=== PATIENT | female | born 1995 | race African-American/Black ===

== ENCOUNTER → 2017-01-08 | Outpatient (CLI) | payer MEDICAID ==
[~2017-01-08] MED LIST: BENA25CA2 PO; COLA100C5 PO; FERR325T3 PO; IBUP-1022 PO; IBUP-1114 PO; MOTR200T44 PO; OXYC1TAB23 PO; PERC5TAB12 PO; PREN1TAB11 PO; PRENTAB9 PO
[2017-01-08 18:52] LABS: ALT/SGPT 9 U/L (12-78); AST/SGOT 12 U/L (7-37); BILIRUBIN,TOTAL 0.6 MG/DL (0.2-1.0); CREATININE FOR GFR 0.51 MG/DL (0.55-1.02); GLOMERULAR FILTRATION RATE > 60.0 (>60); URIC ACID 2.6 MG/DL (2.6-6.0)
[2017-01-08 18:59] LABS: BASO % 0.1 % (0.0-1.0); EOS # 0.1 10^3/uL (0.0-0.50); EOS % 1.1 % (0.0-3.0); IMMATURE GRANULOCYTE % 0.8 % (0-0); LYMPH # 1.5 10^3/uL (1.5-6.5); LYMPH % 16.6 % (24.0-44.0); MEAN CORPUSCULAR HGB CONC 33.2 g/dl (32.0-36.5); MEAN CORPUSCULAR VOLUME 96.2 fl (80.0-96.0); MONO # 0.9 10^3/uL (0.0-0.8); MONO % 9.6 % (0.0-5.0); NEUTROPHILS # 6.4 10^3/uL (1.8-7.7); NEUTROPHILS % 71.8 % (36.0-66.0); PLATELET COUNT, AUTOMATED 244 10^3/uL (150-450); RED CELL DISTRIBUTION WIDTH 12.1 % (11.5-14.5)
[2017-01-09 08:22] LABS: WHITE BLOOD COUNT 8.9 10^3/uL (4.0-10.0)
[2017-01-10 10:48] LABS: HBsAg Prenatal NEGATIVE (NEGATIVE)
== END ==
LOC: M SMT 13:27
PROVIDERS: ATTEND Advanced Practice Midwife
DX: Z36.89 Encounter for other specified antenatal screening (principal); Z3A.26 26 weeks gestation of pregnancy

== ENCOUNTER → 2017-01-11 | Outpatient (CLI) | payer MEDICAID, OTHER ==
--- NOTE | 2017-01-11 21:11 | REP ---
COMPLETE OB ULTRASOUND ANATOMY SCREEN: 01/11/2017. Clinical history: Second trimester anatomy screen, 26 weeks. Findings: No prior studies available for this . There is a single intrauterine gestation in a transverse lie with head towards the maternal right side. Cervix is 3.4 cm long and closed. There is an anterior grade 1 placenta without previa or abruption. Visually the amniotic fluid volume is normal. biometry: BPD 6.6 cm = 26 weeks 4 daysHC 24.1 cm = 26 weeks 1 dayAC 21.8 cm = 26 weeks 2 daysFL 4.7 cm = 25 weeks 6 daysHL 4.5 cm = 26 weeks 6 days CER 3.1 cm = 26 weeks 6 days Average ultrasound age 26 weeks 3 days with EDC 04/16/2017. Estimated weight 893 grams or 1 pound 15 ounces is 35th percentile for this dating. All measurement ratios are normal. Anatomy screen shows heart rate 169 and regular. Cranial vault, lateral ventricles, choroid plexus, cavum septum pellucidum, cerebellum and cisterna magna all unremarkable. Nose and lips view seen but the facial profile not adequate. Four-chamber heart and ventricular outflow tracts are not well seen due to transverse lie. Diaphragm, left-sided stomach bubble, cord insertion, three-vessel cord, kidneys and bladder intact with minimal pelviectasis in the kidneys, less than 4 ml and normal. Transverse and longitudinal views of the spine and the upper and lower extremities grossly intact. The umbilical cord appears to be at least draped over the neck. Impression:1. Single intrauterine gestation in transverse position with head towards the maternal right side and with a closed 3.4 cm long cervix. 2. Anterior grade 1 placenta without previa or abruption and visually normal amniotic fluid. 3. Heart rate 169 and regular. There are no visible anomalies but the facial profile not adequately seen and a four-chamber heart view with ventricular outflow tracts also suboptimal due to transverse lie. Remainder of the structures seen are unremarkable. 4. Average ultrasound age 26 weeks 3 days, EDC 04/16/2017. Estimated weight 35th percentile for this dating. Signed by Willie Osman MD 01/12/2017 08:23 A
== END ==
LOC: M RAD 18:31
PROVIDERS: ATTEND Advanced Practice Midwife
DX: Z36.2 Encounter for other antenatal screening follow-up (principal)

== ENCOUNTER → 2017-02-19 | Outpatient (REF) | payer MEDICAID | LOC: M LAB REF 17:02 | DX: Z34.83 Encounter for supervision of other normal pregnancy, third trimester (principal) ==

== ENCOUNTER 2017-03-05 07:36 | Emergency (ER) | payer MEDICAID, OTHER ==
[2017-03-05] MEDS: FLUCONAZOLE 50MG TABLET PO ×2 (10:15)
[2017-03-05] MEDS ORDERED: FLUCONAZOLE 100 MG TAB PO ×2 (10:30)
[2017-03-05 13:20] LABS: CHLAMYDIA DNA AMPLIFICATION NEGATIVE (NEGATIVE); GC DNA AMPLIFICATION NEGATIVE (NEGATIVE)
== END 2017-03-05 11:06 | disposition home or self-care (01) ==
LOC: M ED 07:36
DX: O23.90 Unspecified genitourinary tract infection in pregnancy, unspecified trimester (principal); B37.3 Candidiasis of vulva and vagina; O99.340 Other mental disorders complicating pregnancy, unspecified trimester; F33.9 Major depressive disorder, recurrent, unspecified; Z3A.00 Weeks of gestation of pregnancy not specified; Z88.0 Allergy status to penicillin; Z86.2 Personal history of diseases of the blood and blood-forming organs and certain disorders involving the immune mechanism; Z98.890 Other specified postprocedural states
CPT/HCPCS: 87210

== ENCOUNTER 2017-03-23 18:25 | Outpatient (CLI) | payer OTHER, MEDICAID | END 2017-03-23 20:02 | disposition home or self-care (01) | LOC: M LDO 18:25 | DX: O26.893 Other specified pregnancy related conditions, third trimester (principal); Z3A.36 36 weeks gestation of pregnancy; O09.33 Supervision of pregnancy with insufficient antenatal care, third trimester; Z87.59 Personal history of other complications of pregnancy, childbirth and the puerperium | CPT/HCPCS: 59025 ==

== ENCOUNTER 2017-03-31 22:18 | Inpatient (IN) | payer MEDICAID, OTHER ==
[2017-03-31] MEDS: LACTATED RINGER'S 1000 ML IV (23:01)
[2017-03-31] MEDS: CEFAZOLIN SOD 1 GM in APPROPRIATE DILUENT 1 EA IV (23:15)
[2017-03-31 23:21] LABS: HEMATOCRIT 28.9 % (36.0-47.0); HEMOGLOBIN 9.3 g/dl (12.0-16.0); MEAN CORPUSCULAR HEMOGLOBIN 29.2 pg (27.0-33.0); MEAN CORPUSCULAR HGB CONC 32.2 g/dl (32.0-36.5); MEAN CORPUSCULAR VOLUME 90.6 fl (80.0-96.0); PLATELET COUNT, AUTOMATED 205 10^3/uL (150-450); RED BLOOD COUNT 3.19 10^6/uL (4.00-5.40); RED CELL DISTRIBUTION WIDTH 12.8 % (11.5-14.5); WHITE BLOOD COUNT 10.4 10^3/uL (4.0-10.0)
[2017-03-31 23:49] LABS: AMPHETAMINES URINE REFLEX NEGATIVE (NEGATIVE); BARBITURATES URINE REFLEX NEGATIVE (NEGATIVE); BENZODIAZEPINES URINE REFLEX NEGATIVE (NEGATIVE); CANNABINOIDS URINE REFLEX NEGATIVE (NEGATIVE); COCAINE METABOLITE URINE REFLE NEGATIVE (NEGATIVE); METHADONE URINE REFLEX NEGATIVE (NEGATIVE); OPIATES URINE REFLEX NEGATIVE (NEGATIVE); PHENCYCLIDINE URINE REFLEX NEGATIVE (NEGATIVE)
[2017-04-01] MEDS: BICITRA 30ML SOLN UDC PO (03:22)
[2017-04-01] MEDS ORDERED: KETOROLAC 60 MG/2 ML VIAL (J1885) As Ordered (03:43)
[2017-04-01] MEDS ORDERED: MORPHINE PRES-FREE INJ 10 MG/10 ML VIAL (J2274) As Ordered (03:43)
[2017-04-01] MEDS ORDERED: ONDANSETRON 4MG/2ML VIAL (J2405) As Ordered (03:43)
[2017-04-01] MEDS ORDERED: OXYTOCIN INJ 10 UNITS/ML VIAL (J2590) As Ordered (03:43)
[2017-04-01] MEDS: LR 1,000 ML IV ×5 (03:49→11:49)
[2017-04-01] MEDS ORDERED: NALBUPHINE HCL 10 MG/ML AMP (J2300) IV ×2 (03:55)
[2017-04-01] MEDS ORDERED: METOCLOPRAMIDE INJ 10MG/2ML VIAL (J2765) IV ×3 (03:55→07:45)
[2017-04-01] MEDS ORDERED: NALOXONE INJ 0.4 MG/1 ML VIAL (J2310) IV ×4 (03:55)
[2017-04-01] MEDS ORDERED: ONDANSETRON 4MG/2ML VIAL (J2405) IV ×5 (03:55→07:45)
[2017-04-01] MEDS ORDERED: MEASLES,MUMPS,RUBELLA VACCINE INJ (MMR-II) (90707) SC (04:00)
[2017-04-01] MEDS ORDERED: DOCUSATE SODIUM 100 MG CAP PO (04:00)
[2017-04-01] MEDS ORDERED: RHOGAM 300 MCG (1500 IU) INJ (J2790) IM (04:00)
[2017-04-01] MEDS ORDERED: fentaNYL 100 MCG/2 ML INJECTION (J3010) IV ×2 (05:15→07:45)
[2017-04-01] MEDS ORDERED: PERCOCET 5MG/325MG TAB PO ×2 (05:15→07:45)
[2017-04-01] MEDS ORDERED: MEPERIDINE INJ 25 MG/ML VIAL (J2175) IV ×2 (05:15→07:45)
[2017-04-01 06:28] LABS: BEDSIDE GLUCOSE 94 MG/DL (70-105)
[2017-04-01] MEDS ORDERED: METOCLOPRAMIDE INJ 10MG/2ML VIAL (J2765) As Ordered (07:00)
[2017-04-01] MEDS: METOCLOPRAMIDE INJ 10MG/2ML VIAL (J2765) IV (07:08)
[2017-04-01] MEDS: PRENATAL VITAMINS CHEWABLE TABLET PO (07:47)
[2017-04-01] MEDS: KETOROLAC 30 MG/ML VIAL (J1885) IV ×3 (10:17→22:10)
[2017-04-01] MEDS ORDERED: ADACEL/BOOSTRIX VACCINE (DIPHTH/PERTUSS/ACELL/TETANUS)0.5ML SYR (90715) IM (16:00)
[2017-04-02] MEDS: KETOROLAC 30 MG/ML VIAL (J1885) IV (04:30)
[2017-04-02 06:53] LABS: HEMATOCRIT 26.9 % (36.0-47.0); HEMOGLOBIN 8.7 g/dl (12.0-16.0); MEAN CORPUSCULAR HEMOGLOBIN 29.4 pg (27.0-33.0); MEAN CORPUSCULAR HGB CONC 32.3 g/dl (32.0-36.5); MEAN CORPUSCULAR VOLUME 90.9 fl (80.0-96.0); PLATELET COUNT, AUTOMATED 195 10^3/uL (150-450); RED BLOOD COUNT 2.96 10^6/uL (4.00-5.40); WHITE BLOOD COUNT 12.5 10^3/uL (4.0-10.0)
[2017-04-02] MEDS: PRENATAL VITAMINS CHEWABLE TABLET PO (09:10)
[2017-04-02] MEDS: FERROUS SULFATE 325MG TAB PO ×2 (09:11→20:35)
[2017-04-02] MEDS: PERCOCET 5MG/325MG TAB PO ×4 (09:12→22:29)
[2017-04-02] MEDS: IBUPROFEN 800 MG TAB PO ×2 (12:04→20:06)
[2017-04-03] MEDS: IBUPROFEN 800 MG TAB PO ×2 (04:02→12:19)
[2017-04-03] MEDS: FERROUS SULFATE 325MG TAB PO (07:44)
[2017-04-03] MEDS: PRENATAL VITAMINS CHEWABLE TABLET PO (07:44)
[2017-04-03] MEDS: PERCOCET 5MG/325MG TAB PO (07:44)
[2017-04-03] MEDS: INFLUENZA QUADRIVALENT PF VACCINE 0.5ML SYRINGE (90686) IM (09:26)
[2017-04-03] MEDS: ADACEL/BOOSTRIX VACCINE (DIPHTH/PERTUSS/ACELL/TETANUS)0.5ML SYR (90715) IM (09:27)
== END 2017-04-03 13:20 | disposition home or self-care (01) | DRG 540 ==
LOC: M LDO 22:18 → M OBS 04-01 06:48 → M LDI 22:53
PROVIDERS: Specialist
PROC: 10D00Z1 Extraction of Products of Conception, Low, Open Approach (ICD-10-PCS; principal; 2017-04-01 03:48)
DX: O34.211 Maternal care for low transverse scar from previous cesarean delivery (principal); O75.82 Onset (spontaneous) of labor after 37 completed weeks of gestation but before 39 completed weeks gestation, with delivery by (planned) cesarean section; Z3A.37 37 weeks gestation of pregnancy; Z37.0 Single live birth

== ENCOUNTER 2017-07-14 14:13 | Emergency (ER) | payer OTHER, MEDICAID ==
[2017-07-14 14:40] LABS: KETONE, URINE AUTO RFX NEGATIVE (NEGATIVE); MUCUS, URINE RFX SMALL (NEGATIVE); NITRITE, URINE AUTO RFX NEGATIVE (NEGATIVE); RBC, URINE AUTO RFX 7 /HPF (0-3); SPECIFIC GRAVITY UR AUTO RFX 1.013 (1.002-1.035); SQUAM EPITHELIAL CELL UR AURFX 9 /HPF (0-6)
[2017-07-14 14:41] LABS: LEUKOCYTE ESTERASE UR AUTO RFX 3+ (NEGATIVE); WBC, URINE AUTO RFX 176 /HPF (0-3)
[2017-07-14] MEDS: ONDANSETRON 4MG/2ML VIAL (J2405) IV (14:45)
[2017-07-14] MEDS: CIPROFLOXACIN 400 MG in APPROPRIATE DILUENT 1 EA IV (14:45)
[2017-07-14] MEDS: NS 1,000 ML IV ×2 (14:45→16:11)
[2017-07-14] MEDS: ACETAMINOPHEN 325 MG TAB PO (14:45)
[2017-07-14 15:12] LABS: BASO % 0.1 % (0.0-1.0); EOS % 0.2 % (0.0-3.0); HEMATOCRIT 29.7 % (36.0-47.0); HEMOGLOBIN 9.5 g/dl (12.0-15.5); IMMATURE GRANULOCYTE % 0.3 % (0-3.0); LYMPH # 1.3 10^3/uL (1.5-6.5); LYMPH % 13.9 % (24.0-44.0); MEAN CORPUSCULAR HEMOGLOBIN 28.3 pg (27.0-33.0); MEAN CORPUSCULAR VOLUME 88.4 fl (80.0-96.0); MONO # 0.8 10^3/uL (0.0-0.8); MONO % 8.5 % (0.0-5.0); NEUTROPHILS # 7.4 10^3/uL (1.8-7.7); PLATELET COUNT, AUTOMATED 369 10^3/uL (150-450); RED BLOOD COUNT 3.36 10^6/uL (4.00-5.40); RED CELL DISTRIBUTION WIDTH 12.9 % (11.5-14.5); WHITE BLOOD COUNT 9.6 10^3/uL (4.0-10.0)
[2017-07-14 15:49] LABS: ANION GAP 8 MEQ/L (8-16); BLOOD UREA NITROGEN 6 MG/DL (7-18); C REACTIVE PROTEIN QUANTITATIV 4.72 MG/DL (0.00-0.30); CALCIUM LEVEL 8.8 MG/DL (8.5-10.1); CARBON DIOXIDE LEVEL 26 MEQ/L (21-32); CHLORIDE LEVEL 101 MEQ/L (98-107); CREATININE FOR GFR 0.77 MG/DL (0.55-1.30); GLOMERULAR FILTRATION RATE > 60.0 (>60); GLUCOSE, FASTING 109 MG/DL (70-100); POTASSIUM SERUM 3.2 MEQ/L (3.5-5.1); SODIUM LEVEL 135 MEQ/L (136-145)
[2017-07-14 15:52] LABS: LACTIC ACID SEPSIS PROTOCOL 0.8 MMOL/L (0.4-2.0)
== END 2017-07-14 16:29 | disposition home or self-care (01) ==
LOC: M ED 14:13
DX: N12 Tubulo-interstitial nephritis, not specified as acute or chronic (principal); F33.9 Major depressive disorder, recurrent, unspecified; Z88.0 Allergy status to penicillin
CPT/HCPCS: J2405

== ENCOUNTER 2017-12-31 07:52 | Emergency (ER) | payer MEDICAID ==
[2017-12-31 08:21] LABS: CONTROL LINE UCG INT CTR LINE PRESENT; URINE PREG TEST NEGATIVE (NEGATIVE)
[2017-12-31 08:37] LABS: AMORPHOUS SEDIMENT RFX SMALL (NEGATIVE); KETONE, URINE AUTO RFX NEGATIVE (NEGATIVE); MUCUS, URINE RFX SMALL (NEGATIVE); NITRITE, URINE AUTO RFX NEGATIVE (NEGATIVE); RBC, URINE AUTO RFX TNTC /HPF (0-3); SPECIFIC GRAVITY UR AUTO RFX 1.021 (1.002-1.035); SQUAM EPITHELIAL CELL UR AURFX 21 /HPF (0-6)
[2017-12-31 08:45] LABS: LEUKOCYTE ESTERASE UR AUTO RFX 2+ (NEGATIVE); WBC, URINE AUTO RFX TNTC /HPF (0-3)
[2017-12-31] MEDS ORDERED: NITROFURANTOIN (MACROBID) 100 MG CAP PO (09:00)
[2017-12-31] MEDS ORDERED: PHENAZOPYRIDINE 100 MG TAB PO (09:00)
== END 2017-12-31 09:02 | disposition home or self-care (01) ==
LOC: M ED 07:52
DX: N39.0 Urinary tract infection, site not specified (principal); R31.9 Hematuria, unspecified; Z88.0 Allergy status to penicillin; F17.210 Nicotine dependence, cigarettes, uncomplicated
CPT/HCPCS: 84703

== ENCOUNTER 2018-02-26 08:31 | Emergency (ER) | payer MEDICAID, OTHER ==
[~2018-02-26] VITALS: Ht 154.9 cm; Wt 44.5 kg
[~2018-02-26 08:31] MED LIST changes: +CIPR-249 PO; +DIFL150T PO; +IBUP80TA PO; +MACR100C43 PO; +PYRI1TAB5 PO; +ZOFR4TAB14 PO; +[UNRECOGNIZED DRUG - CODE]
[2018-02-26 08:32] VITALS: BP 125/57
[2018-02-26] MEDS ORDERED: MACR100C43 PO (09:33)
[2018-02-26] MEDS ORDERED: PYRI1TAB5 PO (09:33)
== END 2018-02-26 09:39 | disposition home or self-care (01) ==
LOC: M ED 08:31
DX: R35.0 Frequency of micturition (principal); Z87.440 Personal history of urinary (tract) infections; F17.200 Nicotine dependence, unspecified, uncomplicated; Z88.0 Allergy status to penicillin

== ENCOUNTER 2018-03-31 07:37 | Emergency (ER) | payer OTHER ==
[~2018-03-31] VITALS: Ht 154.9 cm; Wt 45.5 kg
[2018-03-31 07:38] VITALS: BP 114/63
[2018-03-31] MEDS: ACETAMINOPHEN 325 MG TAB PO ONE (08:49)
[2018-03-31] MEDS: PHENAZOPYRIDINE 100 MG TAB PO ONE (08:49)
== END 2018-03-31 08:56 | disposition home or self-care (01) ==
LOC: M ED 07:37
DX: R30.0 Dysuria (principal); R10.2 Pelvic and perineal pain; Z87.440 Personal history of urinary (tract) infections; Z88.0 Allergy status to penicillin

== ENCOUNTER → 2018-06-07 | Outpatient (REF) | payer OTHER ==
[2018-06-07 14:23] LABS: APPEARANCE, URINE CLOUDY (CLEAR); BACTERIA, URINE AUTO NEGATIVE (NEGATIVE); BILIRUBIN, URINE AUTO NEGATIVE (NEGATIVE); BLOOD, URINE BLOOD NEGATIVE (NEGATIVE); COLOR, URINE AMBER (YELLOW); GLUCOSE, URINE (UA) AUTO NEGATIVE (NEGATIVE); KETONE, URINE AUTO NEGATIVE (NEGATIVE); LEUKOCYTE ESTERASE, URINE AUTO NEGATIVE (NEGATIVE); MUCUS, URINE LARGE (NEGATIVE); NITRITE, URINE AUTO NEGATIVE (NEGATIVE); PROTEIN, URINE AUTO NEGATIVE (NEGATIVE); RBC, URINE AUTO 3 /HPF (0-3); SPECIFIC GRAVITY URINE AUTO 1.026 (1.002-1.035); SQUAMOUS EPITHELIAL CELL UR AU 18 /HPF (0-6); WBC, URINE AUTO 6 /HPF (0-3)
== END ==
LOC: M LAB REF 13:07
PROVIDERS: ATTEND Physician Assistant
DX: N39.0 Urinary tract infection, site not specified (principal); J02.9 Acute pharyngitis, unspecified

== ENCOUNTER 2018-07-15 09:55 | Emergency (ER) | payer OTHER ==
[~2018-07-15] VITALS: Ht 154.9 cm; Wt 45.5 kg
[2018-07-15] MEDS ORDERED: PENI500T (10:02)
[2018-07-15 12:28] LABS: BASO % 0.1 % (0.0-1.0); EOS # 0.1 10^3/uL (0.0-0.50); EOS % 1.7 % (0.0-3.0); HEMATOCRIT 33.7 % (36.0-47.0); HEMOGLOBIN 11.2 g/dl (12.0-15.5); LYMPH # 2.4 10^3/uL (1.5-6.5); LYMPH % 28.6 % (24.0-44.0); MEAN CORPUSCULAR HEMOGLOBIN 31.4 pg (27.0-33.0); MEAN CORPUSCULAR HGB CONC 33.2 g/dl (32.0-36.5); MEAN CORPUSCULAR VOLUME 94.4 fl (80.0-96.0); MONO # 0.6 10^3/uL (0.0-0.8); MONO % 7.4 % (0.0-5.0); NEUTROPHILS # 5.2 10^3/uL (1.8-7.7); PLATELET COUNT, AUTOMATED 250 10^3/uL (150-450); RED BLOOD COUNT 3.57 10^6/uL (4.00-5.40); WHITE BLOOD COUNT 8.4 10^3/uL (4.0-10.0)
[2018-07-15 12:50] LABS: BLOOD UREA NITROGEN 6 MG/DL (7-18); CALCIUM LEVEL 8.4 MG/DL (8.5-10.1); CARBON DIOXIDE LEVEL 27 MEQ/L (21-32); CHLORIDE LEVEL 103 MEQ/L (98-107); CREATININE FOR GFR 0.56 MG/DL (0.55-1.30); GLOMERULAR FILTRATION RATE > 60.0 (>60); GLUCOSE, FASTING 81 MG/DL (70-100); POTASSIUM SERUM 4.4 MEQ/L (3.5-5.1); SODIUM LEVEL 136 MEQ/L (136-145)
[2018-07-15 12:52] LABS: HCG, SERUM QUALITATIVE POSITIVE (NEGATIVE)
[2018-07-15] MEDS ORDERED: VITAPAK PO (13:31)
[2018-07-15 13:46] VITALS: BP 129/77
[2018-07-15 14:10] LABS: CHLAMYDIA DNA AMPLIFICATION NEGATIVE (NEGATIVE); GC DNA AMPLIFICATION NEGATIVE (NEGATIVE)
== END 2018-07-15 13:49 | disposition home or self-care (01) ==
LOC: M ED 11:22
DX: Z32.01 Encounter for pregnancy test, result positive (principal); N89.8 Other specified noninflammatory disorders of vagina; K04.7 Periapical abscess without sinus

== ENCOUNTER → 2018-07-31 | Outpatient (REF) | payer OTHER ==
[~2018-07-31] MED LIST changes: +PENI500T; +VITAPAK PO
== END ==
LOC: M LAB REF 13:24
PROVIDERS: ATTEND Advanced Practice Midwife
DX: Z12.4 Encounter for screening for malignant neoplasm of cervix (principal)

== ENCOUNTER → 2018-08-16 | Outpatient (CLI) | payer OTHER ==
--- NOTE | 2018-08-17 08:07 | REP ---
Obstetric sonography: History: Supervision of . Findings: Scanning through the gravid uterus demonstrates a living single intrauterine gestation in a cephalic lie. motion is observed and heart rate is recorded at 150 beats per minute. A posterior grade zero placenta is seen without evidence of previa or abruption. Amniotic fluid is subjectively normal. Closed cervical length is 5.8 cm measured transabdominally. No extrauterine abnormality is observed. Exam quality was inhibited by early gestational age. The following anatomic structures are identified and felt to be unremarkable: cranium, choroid plexus, stomach, kidneys and bladder. Biometry chart: BPD 3.0 cm 15 weeks 4 days Head circumference 11.4 cm 15 weeks 4 days Abdominal circumference 9.1 cm 15 weeks 2 days Femur length 1.8 cm 15 weeks 2 days Humeral length 1.8 cm 15 weeks 1 day HC/AC ratio normal 1.25. Cephalic index normal 0.73. Estimated weight 120 grams, 0 pounds 4 ounces, 40th percentile for 15 weeks 2 days. Impression: Viable single intrauterine gestation at 15 weeks 2 days by today's composite sonographic criteria. NESTOR by sonography 02/05/2019. anatomic survey incomplete due to early gestational age. Electronically Signed by Rivera Lewis MD 08/17/2018 12:00 P
== END ==
LOC: M RAD 17:15
PROVIDERS: ATTEND Advanced Practice Midwife
DX: Z34.80 Encounter for supervision of other normal pregnancy, unspecified trimester (principal); Z3A.15 15 weeks gestation of pregnancy

== ENCOUNTER → 2018-09-03 | Outpatient (CLI) | payer MEDICAID | LOC: M OUTALCOH 11:20 | PROVIDERS: ATTEND Psychiatry & Neurology Psychiatry | DX: F15.20 Other stimulant dependence, uncomplicated (principal) ==

== ENCOUNTER 2018-09-24 13:44 | Emergency (ER) | payer MEDICAID ==
[~2018-09-24] VITALS: Ht 154.9 cm; Wt 46.4 kg
[2018-09-24] MEDS ORDERED: SERT25TA88 (13:53)
[2018-09-24 15:31] LABS: HEMATOCRIT 32.6 % (36.0-47.0); MEAN CORPUSCULAR HGB CONC 33.7 g/dl (32.0-36.5); MEAN CORPUSCULAR VOLUME 97.9 fl (80.0-96.0); PLATELET COUNT, AUTOMATED 220 10^3/uL (150-450); RED BLOOD COUNT 3.33 10^6/uL (4.00-5.40); WHITE BLOOD COUNT 8.8 10^3/uL (4.0-10.0)
[2018-09-24 15:54] LABS: AMPHETAMINES LEVEL URINE NEGATIVE (NEGATIVE); BARBITURATES URINE NEGATIVE (NEGATIVE); BENZODIAZEPINES URINE NEGATIVE (NEGATIVE); CANNABINOIDS URINE NEGATIVE (NEGATIVE); COCAINE METABOLITE URINE POSITIVE (NEGATIVE); METHADONE URINE NEGATIVE (NEGATIVE); OPIATES URINE NEGATIVE (NEGATIVE); PHENCYCLIDINE URINE NEGATIVE (NEGATIVE)
[2018-09-24 16:12] LABS: ALBUMIN 2.9 GM/DL (3.2-5.2); ALT/SGPT 10 U/L (12-78); BILIRUBIN,DIRECT 0.1 MG/DL (0.0-0.2); BILIRUBIN,TOTAL 0.6 MG/DL (0.2-1.0); BLOOD UREA NITROGEN 7 MG/DL (7-18); CALCIUM LEVEL 8.9 MG/DL (8.5-10.1); CARBON DIOXIDE LEVEL 26 MEQ/L (21-32); CHLORIDE LEVEL 108 MEQ/L (98-107); CREATININE FOR GFR 0.56 MG/DL (0.55-1.30); GLOMERULAR FILTRATION RATE > 60.0 (>60); GLUCOSE, FASTING 75 MG/DL (70-100); POTASSIUM SERUM 3.9 MEQ/L (3.5-5.1); SALICYLATE LEVEL < 1.7 MG/DL (5.0-30.0); SODIUM LEVEL 138 MEQ/L (136-145); THYROID STIMULATING HORMONE 0.413 uIU/ML (0.358-3.740)
[2018-09-24 16:13] LABS: ACETAMINOPHEN LEVEL < 2.0 UG/ML (10.0-30.0); ETHYL ALCOHOL (ETHANOL) < 0.003 % (0.000-0.010)
[2018-09-24 20:25] VITALS: BP 126/62
--- NOTE | 2018-09-24 20:35 | ECGEPIP ---
[facility] - ED Test Date: 2018-09-24 Pat Name: BENJAMIN FISCHER Department: Room: - Gender: Female Director Toxicology: : 1995 Requested By: ANDRESSA GRIMALDO Order Number: [id number] Reading MD: Kellee Houston Measurements Intervals [place] Rate: 82 P: 61 CA: 152 QRS: 64 QRSD: 86 T: 55 QT: 369 QTc: 431 Interpretive Statements SINUS RHYTHM MODERATE T-WAVE ABNORMALITY, CONSIDER ISCHEMIA NO PRIOR Electronically Signed on 09-24-2018 20:35:36 EDT by Kellee Houston
== END 2018-09-24 20:27 ==
LOC: M ED 13:44
DX: O99.342 Other mental disorders complicating pregnancy, second trimester (principal); F32.2 Major depressive disorder, single episode, severe without psychotic features; R45.851 Suicidal ideations; O99.332 Smoking (tobacco) complicating pregnancy, second trimester; F17.200 Nicotine dependence, unspecified, uncomplicated; O99.322 Drug use complicating pregnancy, second trimester; F14.10 Cocaine abuse, uncomplicated; Z88.0 Allergy status to penicillin; Z79.899 Other long term (current) drug therapy; Z3A.20 20 weeks gestation of pregnancy
CPT/HCPCS: 36415; 80048; 80076; 80307; 84443; 85027; 93005; 99285; G0480

== ENCOUNTER 2018-10-03 10:00 | Outpatient (RCR) | payer MEDICAID ==
[~2018-10-03 10:00] MED LIST changes: +SERT25TA88
== END 2018-10-05 ==
LOC: M OUTALCOH 10:00
PROVIDERS: ATTEND Psychiatry & Neurology Psychiatry
DX: F15.20 Other stimulant dependence, uncomplicated (principal)

== ENCOUNTER 2018-10-20 21:54 | Emergency (ER) | payer MEDICAID, OTHER ==
[~2018-10-20] VITALS: Ht 154.9 cm; Wt 45.5 kg
[2018-10-20 23:33] VITALS: BP 109/68
== END 2018-10-20 23:35 | disposition home or self-care (01) ==
LOC: M ED 21:54
DX: N89.8 Other specified noninflammatory disorders of vagina (principal)

== ENCOUNTER 2018-12-07 00:33 | Outpatient (CLI) | payer OTHER ==
[~2018-12-07] VITALS: Ht 165.1 cm; Wt 52.8 kg
[~2018-12-07 00:33] MED LIST changes: +SERT25TA21; -SERT25TA88
[2018-12-07 00:49] VITALS: BP 101/61
[2018-12-07 01:57] LABS: AMPHETAMINES URINE REFLEX NEGATIVE (NEGATIVE); BARBITURATES URINE REFLEX NEGATIVE (NEGATIVE); BENZODIAZEPINES URINE REFLEX NEGATIVE (NEGATIVE); CANNABINOIDS URINE REFLEX NEGATIVE (NEGATIVE); COCAINE METABOLITE URINE REFLE NEGATIVE (NEGATIVE); METHADONE URINE REFLEX NEGATIVE (NEGATIVE); OPIATES URINE REFLEX NEGATIVE (NEGATIVE); PHENCYCLIDINE URINE REFLEX NEGATIVE (NEGATIVE)
[2018-12-07 01:59] LABS: BASO % 0.2 % (0.0-1.0); EOS # 0.1 10^3/uL (0.0-0.5); EOS % 1.1 % (0.0-3.0); HEMATOCRIT 31.9 % (36.0-47.0); LYMPH # 2.3 10^3/uL (1.5-5.0); LYMPH % 24.6 % (24.0-44.0); MEAN CORPUSCULAR HEMOGLOBIN 30.7 pg (27.0-33.0); MEAN CORPUSCULAR HGB CONC 31.3 g/dl (32.0-36.5); MEAN CORPUSCULAR VOLUME 97.9 fl (80.0-96.0); MONO # 0.6 10^3/uL (0.0-0.8); MONO % 6.1 % (0.0-5.0); NEUTROPHILS # 6.3 10^3/uL (1.5-8.5); NEUTROPHILS % 67.2 % (36.0-66.0); PLATELET COUNT, AUTOMATED 200 10^3/uL (150-450); RED BLOOD COUNT 3.26 10^6/uL (4.00-5.40); WHITE BLOOD COUNT 9.3 10^3/uL (4.0-10.0)
--- NOTE | 2018-12-07 02:25 | REPVR ---
PROCEDURE INFORMATION: Exam: US After First Trimester, Transabdominal Exam date and time: 12/07/2018 1:51 AM Clinical history: 23 years old, female; Lmp or gestational age (in weeks): 32; Antepartum complications; Decreased movements; Fetus 1; ; Additional info: Poor compliance with care TECHNIQUE: Imaging protocol: Real-time transabdominal obstetrical ultrasound of the maternal pelvis and a second or third trimester with image documentation. COMPARISON: US OBS SINGEL GEST 08/16/2018 5:19 PM FINDINGS: GESTATION: Gestation: Single intrauterine fetus. Presentation: Cephalic presentation. Placenta: Posterior placenta. Amniotic fluid: The JOHN is normal measuring 13.4 cm. Heart: The intracranial structures, face/profile, spine, 4 chamber heart, LVOT, RVOT, stomach, cord insertion and visualized extremities appear normal. Umbilical cord and insertion: Umbilical cord S/D is 3.44. The cord insertion is normal. MATERNAL: Cervix: Closed cervix measuring 3.3 cm. Intraperitoneal: Biophysical profile score is 8/8. IMPRESSION: 1. Single live intrauterine fetus in cephalic presentation. 2. Biophysical profile score is 8/8. 3. Normal JOHN of 13.4 cm. Electronically signed by: Ethan Paris On 12/07/2018 02:25:23 AM
--- NOTE | 2018-12-07 03:44 | IPNPDOC ---
Text Note Date of Service The patient was seen on 12/07/18. NOTE Outpatient 23yo NESTOR 02/05/19. Presents @ 31w3d with complaints of decreased FM. Denies regular UC, LOF or bleeding. Hx significant for previous x3 and sporadic care this . Hasn't been seen since September. PNP and anatomy scan not yet done. NAD, VSS Cat I tracing No UC on monitor BPP 09/12, EFW 1672 gm, 23% PNP pending. UDS is negative. Pt is reassured. Discharged home. Stressed need for appt this week. Pt verbalized understanding. VS,Fishbone, I+O VS, Fishbone, I+O Laboratory Tests 12/07/18 01:53 Vital Signs Date Time Temp Pulse Resp B/P (MAP) Pulse Ox O2 Delivery O2 Flow Rate FiO2 12/07/18 00:49 98.4 83 18 101/61 (74) Alis Michel CNM Dec 07, 2018 03:44
[2018-12-07 05:06] LABS: CHLAMYDIA DNA AMPLIFICATION NEGATIVE (NEGATIVE); GC DNA AMPLIFICATION NEGATIVE (NEGATIVE)
[2018-12-09 13:57] LABS: HIV 1&2 SCREEN CENTAUR NEGATIVE (NEGATIVE); RUBELLA IgG QUALITATIVE IMMUNE (IMMUNE)
== END 2018-12-07 03:45 | disposition home or self-care (01) ==
LOC: M LDO 00:33
PROVIDERS: ATTEND Advanced Practice Midwife
DX: O36.8130 Decreased fetal movements, third trimester, not applicable or unspecified (principal); Z3A.31 31 weeks gestation of pregnancy

== ENCOUNTER → 2018-12-11 | Outpatient (REF) | payer MEDICAID, OTHER | LOC: M LAB REF 16:59 | PROVIDERS: ATTEND Advanced Practice Midwife | DX: Z34.83 Encounter for supervision of other normal pregnancy, third trimester (principal) ==

== ENCOUNTER → 2018-12-24 | Outpatient (REF) | payer MEDICAID, OTHER ==
[~2018-12-24] MED LIST changes: +MULTTAB20 PO
== END ==
LOC: M LAB REF 16:57
PROVIDERS: ATTEND Advanced Practice Midwife
DX: Z34.83 Encounter for supervision of other normal pregnancy, third trimester (principal)

== ENCOUNTER 2019-01-30 05:34 | Inpatient (IN) | payer OTHER ==
[2019-01-30] VITALS (8 sets, daily range): BP systolic 100–124; BP diastolic 60–77
[~2019-01-30] VITALS: Ht 154.9 cm; Wt 59.9 kg
[2019-01-30] MEDS ORDERED: CLINDAMYCIN 900 MG/50 ML PREMIX BAG As Ordered ONE (06:04)
[2019-01-30] MEDS ORDERED: BICITRA 30ML SOLN UDC As Ordered ONE (06:04)
[2019-01-30] MEDS ORDERED: LR 1,000 ML IV ONE (06:15)
[2019-01-30] MEDS ORDERED: BICITRA 30ML SOLN UDC PO ONE (06:15)
[2019-01-30] MEDS ORDERED: CLINDAMYCIN 900 MG in IV 1 EA IV ONE (06:15)
[2019-01-30 06:32] LABS: HEMATOCRIT 33.7 % (36.0-47.0); HEMOGLOBIN 10.3 g/dl (12.0-15.5); MEAN CORPUSCULAR HGB CONC 30.6 g/dl (32.0-36.5); MEAN CORPUSCULAR VOLUME 91.6 fl (80.0-96.0); PLATELET COUNT, AUTOMATED 248 10^3/uL (150-450); RED BLOOD COUNT 3.68 10^6/uL (4.00-5.40); WHITE BLOOD COUNT 8.1 10^3/uL (4.0-10.0)
[2019-01-30] MEDS: LR 1,000 ML IV SCH ×2 (07:16→15:00)
[2019-01-30] MEDS ORDERED: ONDANSETRON 4MG/2ML VIAL (J2405) As Ordered ONE ×2 (07:23→10:22)
[2019-01-30] MEDS ORDERED: OXYTOCIN INJ 10 UNITS/ML VIAL (J2590) As Ordered ONE (07:23)
[2019-01-30] MEDS ORDERED: MORPHINE PRES-FREE INJ 10 MG/10 ML VIAL (J2274) As Ordered ONE (07:23)
[2019-01-30] MEDS ORDERED: dexameTHASONE 4 MG/ML 1ML VIAL (J1100) As Ordered ONE (07:23)
[2019-01-30] MEDS ORDERED: KETOROLAC 60 MG/2 ML VIAL (J1885) As Ordered ONE (07:23)
[2019-01-30] MEDS ORDERED: ONDANSETRON 4MG/2ML VIAL (J2405) IV PRN ×2 (07:56→10:00)
[2019-01-30] MEDS ORDERED: NALBUPHINE HCL 10 MG/ML AMP (J2300) IV PRN (07:56)
[2019-01-30] MEDS ORDERED: diphenhydrAMINE INJ 50MG/ML VIAL (J1200) IV PRN (07:56)
[2019-01-30] MEDS ORDERED: NALOXONE INJ 0.4 MG/1 ML VIAL (J2310) IV PRN ×2 (07:56)
[2019-01-30] MEDS ORDERED: METOCLOPRAMIDE INJ 10MG/2ML VIAL (J2765) IV PRN (07:56)
[2019-01-30] MEDS ORDERED: PHENYLephrine HCL 500 MCG/5 ML (100MCG/ML) SYRINGE (J2370) As Ordered ONE (08:03)
[2019-01-30] MEDS ORDERED: ePHEDrine SULFATE 25 MG/5 ML(5MG/ML) SYRINGE As Ordered ONE (08:08)
[2019-01-30 08:42] LABS: AMPHETAMINES URINE REFLEX NEGATIVE (NEGATIVE); BARBITURATES URINE REFLEX NEGATIVE (NEGATIVE); BENZODIAZEPINES URINE REFLEX NEGATIVE (NEGATIVE); CANNABINOIDS URINE REFLEX NEGATIVE (NEGATIVE); COCAINE METABOLITE URINE REFLE NEGATIVE (NEGATIVE); METHADONE URINE REFLEX NEGATIVE (NEGATIVE); OPIATES URINE REFLEX NEGATIVE (NEGATIVE); PHENCYCLIDINE URINE REFLEX NEGATIVE (NEGATIVE)
[2019-01-30] MEDS ORDERED: GENTAMICIN 300 MG in D5W 50 ML IV ONE (09:00)
[2019-01-30] MEDS ORDERED: ACETAMINOPHEN TAB 650MG DOSE (2X325MG) PO PRN (09:30)
[2019-01-30] MEDS ORDERED: PERCOCET 5MG/325MG TAB PO PRN (09:30)
[2019-01-30] MEDS ORDERED: ONDANSETRON 4 MG TAB (S0181) PO PRN (09:30)
[2019-01-30] MEDS ORDERED: DOCUSATE SODIUM 100 MG CAP PO PRN (09:30)
[2019-01-30] MEDS ORDERED: OXYTOCIN 30 UNITS IN 0.9% NaCl 500ML IV BAG (J2590) As Ordered ONE (09:39)
[2019-01-30] MEDS ORDERED: fentaNYL 100 MCG/2 ML INJECTION (J3010) IV PRN (10:00)
[2019-01-30] MEDS ORDERED: RHOGAM 300 MCG (1500 IU) INJ (J2790) IM SCH (10:00)
[2019-01-30] MEDS ORDERED: OXYTOCIN DRIP 30 UNITS in IV 1 EA IV SCH (10:00)
[2019-01-30] MEDS ORDERED: MEASLES,MUMPS,RUBELLA VACCINE INJ (MMR-II) (90707) SC SCH (10:00)
[2019-01-30] MEDS ORDERED: oxyCODONE 5MG TAB PO PRN (10:00)
[2019-01-30] MEDS ORDERED: IBUP80TA PO (10:54)
[2019-01-30] MEDS ORDERED: PERCOCET PO (10:54)
[2019-01-30] MEDS ORDERED: DOCU100C16 PO (10:54)
[2019-01-30] MEDS: KETOROLAC 30 MG/ML VIAL (J1885) IV SCH ×2 (14:46→20:45)
[2019-01-31 02:00] VITALS: BP 114/70
[2019-01-31] MEDS: KETOROLAC 30 MG/ML VIAL (J1885) IV SCH (02:53)
[2019-01-31 05:56] VITALS: BP 103/65
[2019-01-31 07:05] LABS: HEMATOCRIT 27.9 % (36.0-47.0); HEMOGLOBIN 8.7 g/dl (12.0-15.5); MEAN CORPUSCULAR HEMOGLOBIN 28.7 pg (27.0-33.0); MEAN CORPUSCULAR HGB CONC 31.2 g/dl (32.0-36.5); MEAN CORPUSCULAR VOLUME 92.1 fl (80.0-96.0); PLATELET COUNT, AUTOMATED 215 10^3/uL (150-450); RED BLOOD COUNT 3.03 10^6/uL (4.00-5.40); WHITE BLOOD COUNT 11.6 10^3/uL (4.0-10.0)
--- NOTE | 2019-01-31 07:31 | IPNPDOC ---
Text Note Date of Service The patient was seen on 01/31/19. NOTE POD #1 Feels well. Adequate pain management. Bottle feeding. Voiding VSS, afebrile, normotensive Breasts soft Fundus firm Dressing intact with small amount old drainage Lochia rubra scant without odor POD #1 Routine care and precautions. Anticipate D/C in am VS,Fishbone, I+O VS, Fishbone, I+O Laboratory Tests 01/31/19 06:48 Vital Signs Date Time Temp Pulse Resp B/P (MAP) Pulse Ox O2 Delivery O2 Flow Rate FiO2 01/31/19 05:56 98.1 62 17 103/65 (78) 96 Room Air I&O- Last 24 Hours up to 6 AM 01/31/19 06:00 Intake Total 2807.5 ml Output Total 1600 ml Balance 1207.5 ml Alis Michel CNM Jan 31, 2019 07:30
[2019-01-31] MEDS: PRENATAL VITAMINS CHEWABLE TABLET PO SCH (08:47)
[2019-01-31] MEDS ORDERED: INFLUENZA QUADRIVALENT PF VACCINE 0.5ML SYRINGE (90686) IM ONE (09:00)
[2019-01-31] MEDS ORDERED: ADACEL/BOOSTRIX VACCINE (DIPHTH/PERTUSS/ACELL/TETANUS)0.5ML SYR (90715) IM ONE (09:00)
[2019-01-31 10:00] VITALS: BP 103/64
[2019-01-31] MEDS: IBUPROFEN 800 MG TAB PO SCH ×2 (11:08→18:43)
[2019-01-31 14:00] VITALS: BP 125/71
[2019-01-31 18:03] VITALS: BP 126/61
[2019-01-31] MEDS: PERCOCET 5MG/325MG TAB PO PRN (21:37)
[2019-01-31 22:00] VITALS: BP 118/73
[2019-02-01 02:00] VITALS: BP 116/68
[2019-02-01] MEDS: IBUPROFEN 800 MG TAB PO SCH ×2 (02:30→10:43)
[2019-02-01 06:00] VITALS: BP 105/62
[2019-02-01] MEDS: PERCOCET 5MG/325MG TAB PO PRN (07:55)
[2019-02-01] MEDS: PRENATAL VITAMINS CHEWABLE TABLET PO SCH (07:55)
--- NOTE | 2019-02-01 19:00 | DSES ---
DATE OF ADMISSION: 01/30/2019 DATE OF DISCHARGE: 02/01/2019 A 22-year-old G4, P3 female, 39 weeks gestation presents for repeat section, bilateral tubal ligation. She has a history of three prior cesareans. Her medical history is significant for illegal drug use as well as depression and anxiety. HOSPITAL COURSE: On 01/30/2019, the patient had a repeat (C) section and tubal ligation for a 6 pound 15 ounce . There were no complications. Her postoperative course was unremarkable. She had adequate return of bladder and bowel function. Postoperative hemoglobin was 8.7 g/dL. She was deemed stable for discharge on postoperative day #2. ADMISSION DIAGNOSES: 1. , term. 2. Prior (C) section x3. DISCHARGE DIAGNOSIS: Delivered. PROCEDURES: 1. Repeat elective section. 2. Bilateral tubal ligation. DISPOSITION: Patient will follow up with Dr. Wilkerson in 2 weeks. Instructions reviewed.
== END 2019-02-01 12:00 | disposition home or self-care (01) | DRG 540 ==
LOC: M LDI 05:34 → M OBS 12:07
PROVIDERS: ADMIT Obstetrics & Gynecology; ATTEND Obstetrics & Gynecology
PROC: 0UB70ZZ Excision of Bilateral Fallopian Tubes, Open Approach (ICD-10-PCS; 2019-01-30)
PROC: 10D00Z1 Extraction of Products of Conception, Low, Open Approach (ICD-10-PCS; principal; 2019-01-30 07:30)
DX: O34.211 Maternal care for low transverse scar from previous cesarean delivery (principal); F32.9 Major depressive disorder, single episode, unspecified; Z37.0 Single live birth; Z3A.39 39 weeks gestation of pregnancy; Z30.2 Encounter for sterilization; F41.9 Anxiety disorder, unspecified; O99.344 Other mental disorders complicating childbirth

== ENCOUNTER 2019-02-01 22:24 | Emergency (ER) | payer OTHER ==
[~2019-02-01] VITALS: Ht 154.9 cm; Wt 57.8 kg
[~2019-02-01 22:24] MED LIST changes: +DOCU100C16 PO; +PERCOCET PO
[2019-02-01 22:25] VITALS: BP 107/72
== END 2019-02-01 23:02 | disposition left against medical advice (07) ==
LOC: M ED 22:24
DX: Z53.29 Procedure and treatment not carried out because of patient's decision for other reasons (principal)

== ENCOUNTER → 2020-01-15 | Outpatient (REF) | payer OTHER ==
[2020-01-15 16:10] LABS: HEMATOCRIT 36.9 % (36.0-47.0); HEMOGLOBIN 11.4 g/dl (12.0-15.5); MEAN CORPUSCULAR HEMOGLOBIN 28.6 pg (27.0-33.0); MEAN CORPUSCULAR HGB CONC 30.9 g/dl (32.0-36.5); MEAN CORPUSCULAR VOLUME 92.7 fl (80.0-96.0); PLATELET COUNT, AUTOMATED 295 10^3/uL (150-450); RED BLOOD COUNT 3.98 10^6/uL (4.00-5.40); WHITE BLOOD COUNT 5.8 10^3/uL (4.0-10.0)
[2020-01-15 16:32] LABS: ERYTHROCYTE SEDIMENTATION RATE 14 mm/hr (0-20)
[2020-01-15 16:41] LABS: ALBUMIN 3.8 GM/DL (3.2-5.2); ALT/SGPT 17 U/L (12-78); BILIRUBIN,TOTAL 0.9 MG/DL (0.2-1.0); BLOOD UREA NITROGEN 10 MG/DL (7-18); CALCIUM LEVEL 9.2 MG/DL (8.5-10.1); CARBON DIOXIDE LEVEL 27 MEQ/L (21-32); CHLORIDE LEVEL 109 MEQ/L (98-107); CREATININE FOR GFR 0.73 MG/DL (0.55-1.30); GLOMERULAR FILTRATION RATE > 60.0 (>60); GLUCOSE, FASTING 88 MG/DL (70-100); POTASSIUM SERUM 4.3 MEQ/L (3.5-5.1); SODIUM LEVEL 139 MEQ/L (136-145); THYROID STIMULATING HORMONE 0.568 uIU/ML (0.358-3.740); TOTAL PROTEIN 7.4 GM/DL (6.4-8.2)
== END ==
LOC: M LAB REF 15:37
PROVIDERS: ATTEND Physician Assistant
DX: G44.52 New daily persistent headache (NDPH) (principal)

== ENCOUNTER → 2020-02-04 | Outpatient (REF) | payer OTHER | LOC: M LAB REF 16:20 | PROVIDERS: ATTEND Physician Assistant | DX: Z11.59 Encounter for screening for other viral diseases (principal) ==

== ENCOUNTER 2020-10-15 12:00 | Emergency (ER) | payer OTHER ==
[~2020-10-15] VITALS: Ht 154.9 cm; Wt 43.7 kg
[~2020-10-15 12:00] MED LIST changes: +LIDOCAINE 5% OINT 30GM TUBE TOP SCH; +SPRI28TA PO
[2020-10-15 12:01] VITALS: BP 106/62
[2020-10-15] MEDS ORDERED: CLIN300C6 (12:10)
[2020-10-15] MEDS ORDERED: VALA1TAB5 PO (17:59)
[2020-10-15] MEDS ORDERED: LIDOCAINE 5% OINT 30GM TUBE As Ordered ONE (18:34)
[2020-10-15 18:57] LABS: GC DNA AMPLIFICATION NEGATIVE (NEGATIVE)
[2020-10-15 19:56] LABS: HIV 1&2 SCREEN CENTAUR NEGATIVE (NEGATIVE)
[2020-10-16] MEDS ORDERED: LIDOCAINE 5% OINT 30GM TUBE TOP SCH (09:00)
[2020-10-20 07:07] LABS: HSV-1 DNA Negative (Negative); HSV-2 DNA Negative (Negative)
== END 2020-10-15 18:46 | disposition home or self-care (01) ==
LOC: M ED 12:00
DX: A60.04 Herpesviral vulvovaginitis (principal); F17.200 Nicotine dependence, unspecified, uncomplicated; Z88.1 Allergy status to other antibiotic agents; Z79.899 Other long term (current) drug therapy

== ENCOUNTER → 2020-11-30 | Outpatient (REF) | payer MEDICAID, OTHER ==
[~2020-11-30] MED LIST changes: +CLIN-250; -LIDOCAINE 5% OINT 30GM TUBE TOP SCH; +VALA1TAB5 PO
== END ==
LOC: M SFHCWAGY 10:11
PROVIDERS: ATTEND Advanced Practice Midwife
DX: Z01.419 Encounter for gynecological examination (general) (routine) without abnormal findings (principal); Z12.4 Encounter for screening for malignant neoplasm of cervix

== ENCOUNTER 2021-08-26 09:39 | Inpatient (IN) | payer MEDICAID, OTHER ==
[~2021-08-26] VITALS: Ht 154.9 cm; Wt 44.5 kg
[2021-08-26 10:27] LABS: HEMATOCRIT 33.4 % (36.0-47.0); HEMOGLOBIN 10.9 g/dl (12.0-15.5); MEAN CORPUSCULAR HEMOGLOBIN 28.4 pg (27.0-33.0); MEAN CORPUSCULAR HGB CONC 32.6 g/dl (32.0-36.5); PLATELET COUNT, AUTOMATED 358 10^3/uL (150-450); RED BLOOD COUNT 3.84 10^6/uL (4.00-5.40)
[2021-08-26 11:01] LABS: HCG, SERUM QUALITATIVE NEGATIVE (NEGATIVE)
[2021-08-26 11:29] LABS: ACETAMINOPHEN LEVEL < 2.0 UG/ML (10.0-30.0); ALBUMIN 4.1 GM/DL (3.2-5.2); ALT/SGPT 26 U/L (12-78); BILIRUBIN,DIRECT 0.3 MG/DL (0.0-0.2); BILIRUBIN,TOTAL 0.9 MG/DL (0.2-1.0); BLOOD UREA NITROGEN 18 MG/DL (7-18); CALCIUM LEVEL 9.6 MG/DL (8.5-10.1); CARBON DIOXIDE LEVEL 26 MEQ/L (21-32); CHLORIDE LEVEL 104 MEQ/L (98-107); CREATININE FOR GFR 0.94 MG/DL (0.55-1.30); ETHYL ALCOHOL (ETHANOL) < 0.003 % (0.000-0.010); GLOMERULAR FILTRATION RATE > 60.0 (>60); GLUCOSE, FASTING 106 MG/DL (70-100); POTASSIUM SERUM 3.6 MEQ/L (3.5-5.1); SALICYLATE LEVEL < 1.7 MG/DL (5.0-30.0); SODIUM LEVEL 136 MEQ/L (136-145); THYROID STIMULATING HORMONE 0.372 uIU/ML (0.358-3.740); TOTAL PROTEIN 8.2 GM/DL (6.4-8.2)
[2021-08-26 12:55] LABS: AMPHETAMINES LEVEL URINE NEGATIVE (NEGATIVE); BARBITURATES URINE NEGATIVE (NEGATIVE); BENZODIAZEPINES URINE NEGATIVE (NEGATIVE); CANNABINOIDS URINE POSITIVE (NEGATIVE); COCAINE METABOLITE URINE NEGATIVE (NEGATIVE); METHADONE URINE NEGATIVE (NEGATIVE); OPIATES URINE NEGATIVE (NEGATIVE); PHENCYCLIDINE URINE NEGATIVE (NEGATIVE)
[2021-08-26] MEDS ORDERED: IBUP-1720 PO (15:33)
[2021-08-26] MEDS ORDERED: ACET1TAB55 PO (15:33)
[2021-08-26] MEDS ORDERED: HOME MED LIST COMPLETE! XX SCH (15:35)
[2021-08-26] MEDS ORDERED: OLANZapine ORAL DISINTEGRATING TAB 5MG PO PRN (19:05)
[2021-08-26] MEDS ORDERED: MOM 30ML SUSPENSION UDC PO PRN (19:05)
[2021-08-26] MEDS ORDERED: traZODone 50 MG TAB PO PRN (19:05)
[2021-08-26] MEDS ORDERED: MAALOX 30 ML SUSP *UDC PO PRN (19:05)
[2021-08-26] MEDS ORDERED: ACETAMINOPHEN TAB 650MG DOSE (2X325MG) PO PRN (19:05)
[2021-08-26 19:10] LABS: RSV AMPLIFICATION NEGATIVE (NEGATIVE)
[2021-08-27 00:17] VITALS: BP 121/65
[2021-08-27] MEDS: FLUoxetine 20MG CAP PO SCH (13:27)
[2021-08-27 17:58] VITALS: BP 131/71
[2021-08-27] MEDS: BENZOCAINE 10% 9GM TUBE (ANBESOL) MT SCH ×2 (18:42→21:46)
[2021-08-28 06:26] VITALS: BP 120/63
[2021-08-28] MEDS: BENZOCAINE 10% 9GM TUBE (ANBESOL) MT SCH ×4 (09:51→21:01)
[2021-08-28] MEDS: FLUoxetine 20MG CAP PO SCH (09:51)
[2021-08-28 18:00] VITALS: BP 106/65
[2021-08-29 06:51] VITALS: BP 113/69
[2021-08-29] MEDS ORDERED: FLUO20CA22 PO (08:42)
[2021-08-29] MEDS: FLUoxetine 20MG CAP PO SCH (09:13)
[2021-08-29] MEDS: BENZOCAINE 10% 9GM TUBE (ANBESOL) MT SCH (09:14)
== END 2021-08-29 11:37 | disposition home or self-care (01) | DRG 755 ==
LOC: M ED 09:39 → M ED INP 19:03 → M PSY 08-27 00:30
PROVIDERS: ADMIT Student in an Organized Health Care Education/Training Program; ATTEND Student in an Organized Health Care Education/Training Program
DX: F43.10 Post-traumatic stress disorder, unspecified (principal); F17.210 Nicotine dependence, cigarettes, uncomplicated; F12.10 Cannabis abuse, uncomplicated; K12.1 Other forms of stomatitis; F15.10 Other stimulant abuse, uncomplicated; Z56.0 Unemployment, unspecified; Z63.32 Other absence of family member; Z88.0 Allergy status to penicillin

== ENCOUNTER → 2022-03-07 | Outpatient (CLI) | payer MEDICAID ==
[~2022-03-07] MED LIST changes: +ACET1TAB55 PO; +FLUO20CA22 PO; +IBUP-1720 PO
== END ==
LOC: M OUTALCOH 08:02
PROVIDERS: ATTEND Psychiatry & Neurology Psychiatry
DX: Z13.89 Encounter for screening for other disorder (principal)

== ENCOUNTER 2022-04-03 14:00 | Outpatient (RCR) | payer MEDICAID | END 2022-04-04 | LOC: M OUTALCOH 14:00 | PROVIDERS: ATTEND Psychiatry & Neurology Psychiatry | DX: F15.20 Other stimulant dependence, uncomplicated (principal) ==

== ENCOUNTER 2022-05-01 14:00 | Outpatient (RCR) | payer MEDICAID | END 2022-05-05 | LOC: M OUTALCOH 14:00 | PROVIDERS: ATTEND Psychiatry & Neurology Psychiatry | DX: F15.20 Other stimulant dependence, uncomplicated (principal) ==

== ENCOUNTER 2022-05-29 16:00 | Outpatient (RCR) | payer MEDICAID | END 2022-06-04 | LOC: M OUTALCOH 16:00 | PROVIDERS: ATTEND Psychiatry & Neurology Psychiatry | DX: F15.20 Other stimulant dependence, uncomplicated (principal) ==

== ENCOUNTER 2022-06-28 15:00 | Outpatient (RCR) | payer MEDICAID | END 2022-07-05 | LOC: M OUTALCOH 15:00 | PROVIDERS: ATTEND Psychiatry & Neurology Psychiatry | DX: F15.20 Other stimulant dependence, uncomplicated (principal) ==

== ENCOUNTER 2022-07-08 07:37 | Emergency (ER) | payer MEDICAID ==
[~2022-07-08] VITALS: Ht 154.9 cm; Wt 52.0 kg
[2022-07-08 07:40] VITALS: BP 108/69
[2022-07-08] MEDS ORDERED: NAPR-885 (08:42)
[2022-07-08] MEDS ORDERED: CLIN-250 (08:42)
== END 2022-07-08 08:46 | disposition home or self-care (01) ==
LOC: M ED 08:19
DX: K04.7 Periapical abscess without sinus (principal); Z88.0 Allergy status to penicillin; Z79.899 Other long term (current) drug therapy

== ENCOUNTER 2022-07-14 15:51 | Outpatient (RCR) | payer MEDICAID ==
[~2022-07-14 15:51] MED LIST changes: +NAPR-885
== END 2022-08-04 ==
LOC: M OUTALCOH 15:51
PROVIDERS: ATTEND Psychiatry & Neurology Psychiatry
DX: F15.20 Other stimulant dependence, uncomplicated (principal); F17.200 Nicotine dependence, unspecified, uncomplicated

== ENCOUNTER 2022-12-31 06:10 | Emergency (ER) | payer MEDICAID, OTHER ==
[~2022-12-31] VITALS: Ht 154.9 cm; Wt 51.3 kg
[2022-12-31 06:11] VITALS: BP 101/59; TEMP 97.5; O2SAT 100
== END 2022-12-31 06:19 | disposition left against medical advice (07) ==
LOC: M ED 06:10
DX: Z53.21 Procedure and treatment not carried out due to patient leaving prior to being seen by health care provider (principal)

== ENCOUNTER → 2023-12-04 | Outpatient (REF) | payer OTHER ==
[~2023-12-04] MED LIST changes: +FLUO-365 PO; -FLUO20CA22 PO
[2023-12-04 14:34] LABS: Trichomonas vaginalis (AMP) NOT DETECTED (NEGATIVE)
[2023-12-04 14:58] LABS: GC DNA AMPLIFICATION NEGATIVE (NEGATIVE)
[2023-12-04 17:48] LABS: BASO % 0.4 % (0.0-1.0); EOS # 0.1 10^3/uL (0.0-0.5); EOS % 1.8 % (0.0-3.0); HEMATOCRIT 31.7 % (36.0-47.0); HEMOGLOBIN 9.4 g/dl (12.0-15.5); LYMPH # 2.4 10^3/uL (1.5-5.0); LYMPH % 47.6 % (24.0-44.0); MEAN CORPUSCULAR HEMOGLOBIN 25.6 pg (27.0-33.0); MEAN CORPUSCULAR HGB CONC 29.7 g/dl (32.0-36.5); MEAN CORPUSCULAR VOLUME 86.4 fl (80.0-96.0); MONO # 0.4 10^3/uL (0.0-0.8); MONO % 6.9 % (2.0-8.0); NEUTROPHILS # 2.2 10^3/uL (1.5-8.5); NEUTROPHILS % 43.1 % (36.0-66.0); PLATELET COUNT, AUTOMATED 334 10^3/uL (150-450); RED BLOOD COUNT 3.67 10^6/uL (4.00-5.40); WHITE BLOOD COUNT 5.1 10^3/uL (4.0-10.0)
[2023-12-04 17:57] LABS: FERRITIN 6.8 NG/ML (7.3-270.7); IRON (FE) 22 UG/DL (50-170); PERCENT SATURATION 5.5 % (13.2-45.0); TOTAL IRON BINDING CAPACITY 401 UG/DL (250-425)
[2023-12-04 17:58] LABS: ALBUMIN 3.8 G/DL (3.2-5.2); ALKALINE PHOSPHATASE 52 U/L (35-104); ALT/SGPT 10 U/L (7.0-40); AST/SGOT 14 U/L (<34); BILIRUBIN,TOTAL 0.8 MG/DL (0.3-1.2); BLOOD UREA NITROGEN 14 MG/DL (9-23); CALCIUM LEVEL 9.7 MG/DL (8.5-10.1); CARBON DIOXIDE LEVEL 26 MMOL/L (20-31); CHLORIDE LEVEL 110 MMOL/L (98-107); CREATININE FOR GFR 0.78 MG/DL (0.55-1.30); GLOMERULAR FILTRATION RATE > 60.0 (>60); GLUCOSE, FASTING 87 MG/DL (60-100); POTASSIUM SERUM 4.7 MMOL/L (3.5-5.1); SODIUM LEVEL 139 MMOL/L (136-145); THYROID STIMULATING HORMONE 0.521 uIU/ML (0.55-4.78); TOTAL 25(OH) VITAMIN D 17.8 NG/ML (20.0-100.0); TOTAL PROTEIN 7.6 G/DL (5.7-8.2)
[2023-12-04 18:17] LABS: HEMOGLOBIN A1c 4.9 % (4.0-6.0)
== END ==
LOC: M LAB REF 12:56
PROVIDERS: ATTEND Physician Assistant
DX: Z11.9 Encounter for screening for infectious and parasitic diseases, unspecified (principal); D64.9 Anemia, unspecified; E55.9 Vitamin D deficiency, unspecified; R51.9 Headache, unspecified

== ENCOUNTER 2024-06-12 08:43 | Emergency (ER) | payer OTHER ==
[~2024-06-12] VITALS: Ht 154.9 cm; Wt 59.0 kg
[2024-06-12 08:49] VITALS: BP 124/85; TEMP 98.4; O2SAT 99
[2024-06-12] MEDS ORDERED: AZIT-12 (08:56)
[2024-06-12] MEDS ORDERED: AMIT50TA (08:56)
== END 2024-06-12 10:58 | disposition left against medical advice (07) ==
LOC: M ED 08:43
DX: Z53.21 Procedure and treatment not carried out due to patient leaving prior to being seen by health care provider (principal)

== ENCOUNTER → 2024-08-13 | Outpatient (REF) | payer OTHER ==
[~2024-08-13] MED LIST changes: +AMIT50TA; +AZIT-12
[2024-08-13 19:29] LABS: BASO # 0.0 10^3/uL (0.0-0.2); BASO % 0.3 % (0.0-1.0); EOS # 0.1 10^3/uL (0.0-0.5); EOS % 1.8 % (0.0-3.0); LYMPH # 2.8 10^3/uL (1.5-5.0); LYMPH % 43.6 % (24.0-44.0); MONO # 0.4 10^3/uL (0.0-0.8); MONO % 6.8 % (2.0-8.0); NEUTROPHILS # 3.1 10^3/uL (1.5-8.5); NEUTROPHILS % 47.3 % (36.0-66.0); PLATELET COUNT, AUTOMATED 326 10^3/uL (150-450)
[2024-08-13 20:04] LABS: CALCIUM LEVEL 9.5 MG/DL (8.5-10.1); CARBON DIOXIDE LEVEL 25 MMOL/L (20-31); CHLORIDE LEVEL 104 MMOL/L (98-107); CREATININE FOR GFR 0.77 MG/DL (0.55-1.30); GLOMERULAR FILTRATION RATE > 90.0 (>60); IRON (FE) 42 UG/DL (50-170); PERCENT SATURATION 10.6 % (13.2-45.0); POTASSIUM SERUM 4.3 MMOL/L (3.5-5.1); SODIUM LEVEL 140 MMOL/L (136-145)
[2024-08-13 20:08] LABS: THYROXINE (T4) 9.7 UG/DL (4.5-10.9)
[2024-08-13 20:09] LABS: TOTAL 25(OH) VITAMIN D 42.9 NG/ML (20.0-100.0)
[2024-08-13 23:01] LABS: T UPTAKE 28.5 % (22.5-37.0)
== END ==
LOC: M LAB REF 17:59
PROVIDERS: ATTEND Physician Assistant
DX: R94.6 Abnormal results of thyroid function studies (principal); D50.9 Iron deficiency anemia, unspecified; E55.9 Vitamin D deficiency, unspecified; R51.9 Headache, unspecified

== ENCOUNTER → 2024-08-21 | Outpatient (REF) | payer OTHER ==
[2024-08-21 13:53] LABS: BASO # 0.0 10^3/uL (0.0-0.2); BASO % 0.2 % (0.0-1.0); EOS # 0.1 10^3/uL (0.0-0.5); EOS % 2.0 % (0.0-3.0); LYMPH # 2.4 10^3/uL (1.5-5.0); LYMPH % 49.7 % (24.0-44.0); MONO # 0.4 10^3/uL (0.0-0.8); MONO % 8.1 % (2.0-8.0); NEUTROPHILS # 2.0 10^3/uL (1.5-8.5); NEUTROPHILS % 40.0 % (36.0-66.0); PLATELET COUNT, AUTOMATED 303 10^3/uL (150-450)
[2024-08-21 14:10] LABS: CALCIUM LEVEL 9.3 MG/DL (8.5-10.1); CARBON DIOXIDE LEVEL 26 MMOL/L (20-31); CHLORIDE LEVEL 104 MMOL/L (98-107); CREATININE FOR GFR 0.67 MG/DL (0.55-1.30); GLOMERULAR FILTRATION RATE > 90.0 (>60); POTASSIUM SERUM 4.6 MMOL/L (3.5-5.1); SODIUM LEVEL 141 MMOL/L (136-145)
[2024-08-21 14:12] LABS: MONO REFLEX EBV COMP NEGATIVE (NEGATIVE)
[2024-08-25 14:23] LABS: EBV AB TO NUCLEAR ANTIGEN > 600.00 U/mL (<18.00); EBV VIRAL CAPSID AG IGG > 750.00 U/mL (<18.00); EBV VIRAL CAPSID AG IGM < 36.00 U/mL (<36.00)
== END ==
LOC: M LAB REF 13:33
PROVIDERS: ATTEND Physician Assistant
DX: J02.9 Acute pharyngitis, unspecified (principal)

== ENCOUNTER → 2024-12-02 | Outpatient (REF) | payer MEDICAID ==
[~2024-12-02] MED LIST changes: -IBUP-1022 PO; +IBUP600T42 PO
== END ==
LOC: M LAB REF 11:51
PROVIDERS: ATTEND Physician Assistant
DX: R82.90 Unspecified abnormal findings in urine (principal)